=== PATIENT | female | born 1965 | race Caucasian/White ===

== ENCOUNTER 2016-12-19 04:41 | Emergency (ER) | payer BC ==
[~2016-12-19] VITALS: Ht 165.1 cm; Wt 77.7 kg
[2016-12-19 04:45] VITALS: BP 130/85; PULSE 85; RESP 18; TEMP 98; O2SAT 100
[2016-12-19] MEDS ORDERED: SODIUM CHLOR 0.9% 1000 ML INJ 1,000 ML IV ONE (05:15)
[2016-12-19 05:50] VITALS: BP_SYST 100; BP_SYST 103; BP_DIAS 52; BP_DIAS 63; BP_DIAS 65; RESP 18
[2016-12-19 05:55] VITALS: BP 105/60; PULSE 96; RESP 18; O2SAT 96
[2016-12-19 05:57] LABS: BLOOD, URINE LARGE (NEG); GLUCOSE,URINE NEG (NEG); KETONE, URINE NEG (NEG); NITRITE,URINE NEG (NEG); PH, URINE 5.5 (5.0-8.5)
[2016-12-19 05:58] LABS: AUTOMATED NEUTROPHIL # 6.4 TH/MM3 (1.8-7.7); BASOPHIL % 0.4 % (0.0-2.0); EOSINOPHIL # 0.2 TH/MM3 (0-0.4); EOSINOPHIL % 1.9 % (0.0-4.0); HEMATOCRIT 31.9 % (35.0-46.0); HEMO FLAGS DIFF FINAL; LYMPH % 16.4 % (9.0-44.0); LYMPHOCYTE # 1.4 TH/MM3 (1.0-4.8); MEAN CELL VOLUME 84.4 FL (80.0-100.0); MEAN CORPUSCULAR HEMOGLOBIN 27.5 PG (27.0-34.0); MEAN CORPUSCULAR HGB CONC 32.6 % (32.0-36.0); MONO % 4.9 % (0.0-8.0); NEUT % 76.4 % (16.0-70.0); PLATELET COUNT 255 TH/MM3 (150-450); RED BLOOD COUNT 3.78 MIL/MM3 (4.00-5.30); RED CELL DISTRIBUTION WIDTH 14.1 % (11.6-17.2); WHITE BLOOD COUNT 8.4 TH/MM3 (4.0-11.0)
[2016-12-19 06:06] LABS: URINE COLOR YELLOW (YELLW/STRAW)
[2016-12-19 06:07] LABS: COMMENT (UR) CULT NOT INDICATED; CULTURE IF INDICATED CULT NOT INDICATED; POTASSIUM 3.9 MEQ/L (3.5-5.1); SQUAMOUS EPITHELIAL CELL URINE 0-5 /hpf (0-5); WBC, URINE 0-2 /hpf (0-5)
[2016-12-19 06:10] LABS: BICARBONATE 26.6 MEQ/L (21.0-32.0)
--- NOTE | 2016-12-19 06:15 | PD ---
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 Patient was seen by her primary care provider and referred to Dr. Turner who ordered an outpatient ultrasound. Patient reports that her last Pap smear was 3 years ago which was reportedly normal. Patient has family history of uterine/ovarian cancer in her mother who is . Patient has noted increased bleeding today such that she is changing a Maxi tampon every hour. Patient also complains of dizziness and lightheadedness. No near-syncope or syncope. No abdominal pain. Patient does not know the results of her outpatient ultrasound from earlier this week. PFSH Past Medical History Narrative Medical neg pmh/psh; no tobacco; nursing notes reviewed ?: Not Social History Tobacco Use: No Allergies-Medications (Allergen,Severity, Reaction): Coded Allergies: No Known Allergies (Unverified , 12/19/16) Reported Meds & Prescriptions Reported Meds & Active Scripts Active Medroxyprogesterone Acetate 10 Mg Tab 10 Mg PO DAILY Start day 16 Reported Lorazepam 0.5 Mg Tab 0.5 Mg PO BID PRN Propranolol (Propranolol HCl) 20 Mg Tab 20 Mg PO DAILY Levothyroxine (Levothyroxine Sodium) 100 Mcg Tab 100 Mcg PO DAILY Narrative Medication "pills for 10 days" Review of Systems Except as stated in HPI: all other systems reviewed are Neg General / Constitutional: No: Fever, Chills HENT: No: Congestion Cardiovascular: No: Chest Pain or Discomfort, Syncope Respiratory: No: Shortness of Breath Gastrointestinal: No: Nausea, Vomiting, Abdominal Pain Genitourinary: Positive: Pelvic Pain (intermittent cramping) Musculoskeletal: No: Pain Skin: No Rash Neurologic: No: Weakness Psychiatric: No: Anxiety Hematologic/Lymphatic: No: Lymph Node Enlargement Physical Exam Narrative GENERAL: Well-developed well-nourished female in no acute distress no respiratory distress SKIN: Warm and dry. HEAD: Normocephalic. EYES: No scleral icterus. No injection or drainage. Mild conjunctival pallor. NECK: Supple, trachea midline. No JVD or lymphadenopathy. CARDIOVASCULAR: Regular rate and rhythm without murmurs, gallops, or rubs. RESPIRATORY: Breath sounds equal bilaterally. No accessory muscle use. GASTROINTESTINAL: Abdomen soft, non-tender, nondistended. Pelvic exam: Normal external exam no redness induration or lesions; speculum exam fresh blood in the vaginal vault no clots no tissue cervical os is closed; bimanual exam no palpable uterine enlargement or tenderness or mass, no adnexal mass or tenderness. MUSCULOSKELETAL: No cyanosis, or edema. BACK: Nontender without obvious deformity. No CVA tenderness. Data Data Last Documented VS Vital Signs Date Time Temp Pulse Resp B/P Pulse Ox O2 Delivery O2 Flow Rate FiO2 12/19/16 08:34 70 16 102/60 100 Orders Complete Blood Count With Diff (12/19/16 05:09) Basic Metabolic Panel (Bmp) (12/19/16 05:09) Type And Screen (12/19/16 05:09) Urinalysis - C+S If Indicated (12/19/16 05:09) Iv Access Insert/Monitor (12/19/16 05:09) Sodium Chlor 0.9% 1000 Ml Inj (Ns 1000 M (12/19/16 05:15) Orthostatic Vital Signs (12/19/16 05:09) Ed Urine Pregnancytest Poc (12/19/16 06:15) Estrogens Conjugated Inj (Premarin Inj) (12/19/16 06:45) Labs Laboratory Tests Test 12/19/16 05:40 White Blood Count 8.4 TH/MM3 Red Blood Count 3.78 MIL/MM3 Hemoglobin 10.4 GM/DL Hematocrit 31.9 % Mean Corpuscular Volume 84.4 FL Mean Corpuscular Hemoglobin 27.5 PG Mean Corpuscular Hemoglobin 32.6 % Concent Red Cell Distribution Width 14.1 % Platelet Count 255 TH/MM3 Mean Platelet Volume 7.3 FL Neutrophils (%) (Auto) 76.4 % Lymphocytes (%) (Auto) 16.4 % Monocytes (%) (Auto) 4.9 % Eosinophils (%) (Auto) 1.9 % Basophils (%) (Auto) 0.4 % Neutrophils # (Auto) 6.4 TH/MM3 Lymphocytes # (Auto) 1.4 TH/MM3 Monocytes # (Auto) 0.4 TH/MM3 Eosinophils # (Auto) 0.2 TH/MM3 Basophils # (Auto) 0.0 TH/MM3 CBC Comment DIFF FINAL Differential Comment Urine Color YELLOW Urine Turbidity CLEAR Urine pH 5.5 Urine Specific [place] 1.011 Urine Protein NEG mg/dL Urine Glucose (UA) NEG mg/dL Urine Ketones NEG mg/dL Urine Occult Blood LARGE Urine Nitrite NEG Urine Bilirubin NEG Urine Leukocyte Esterase NEG Urine RBC 10-14 /hpf Urine WBC 0-2 /hpf Urine Squamous Epithelial 0-5 /hpf Cells Urine Bacteria NONE /hpf Microscopic Urinalysis Comment CULT NOT INDICATED Sodium Level 143 MEQ/L Potassium Level 3.9 MEQ/L Chloride Level 108 MEQ/L Carbon Dioxide Level 26.6 MEQ/L Anion Gap 8 MEQ/L Blood Urea Nitrogen 13 MG/DL Creatinine 1.10 MG/DL Estimat Glomerular Filtration 52 ML/MIN Rate Random Glucose 74 MG/DL Calcium Level 8.4 MG/DL Blood Type O NEGATIVE Antibody Screen NEGATIVE MDM Medical Decision Making Medical Screen Exam Complete: Yes Emergency Medical Condition: Yes Medical Record Reviewed: Yes Interpretation(s) CBC & BMP Diagram 12/19/16 05:40 Differential Diagnosis Menorrhagia, uterine fibroid, uterine mass, Narrative Course patient with reported saturated maxi tampon and pad upon arrival to the ED in less than 1 hour; after pelvic exam in less than 1 hour saturated maxi tampon but not the sanitary pad @ 5:45 patient with new tampon and same pad--at 6:10 AM tampon and pad are saturated. Hemoglobin is 10.4 and orthostatic vital signs heart rate changed 20 points from supine to standing blood pressure remains stable. !@ 6:23 AM case discussed with Dr Ram -- recommends premarin iv x 1 dose and Rx for progesterone along with patient to see Dr Morfin on Wednesday At 7 AM care signed over to oncoming physician Dr. Alcaraz Physician Communication Physician Communication discussed with Dr Ram Diagnosis Primary Impression: Metrorrhagia Referrals: Impregnator Helper 2 days Patient Instructions: General Instructions Additional Instructions: follow up with your DRIVER LICENSE AGENT Wednesday No work 2 days Return to the emergency department for any concerns or change in condition Increase fluid hydration Med/Other Pt SpecificInfo: Prescription(s) given Scripts Medroxyprogesterone Acetate 10 Mg Tab10 Mg PO DAILY #10 TAB Ref 0 Start day 16 Prov:Helen Kenyon MD 12/19/16 Helen Kenyon MD Dec 19, 2016 06:15
[2016-12-19] MEDS ORDERED: LEVO100T5 PO (06:37)
[2016-12-19] MEDS ORDERED: PROP20TA3 PO (06:37)
[2016-12-19] MEDS ORDERED: LORA-373 PO (06:38)
[2016-12-19] MEDS ORDERED: ESTROGENS CONJUGATED 25 MG/5 ML VIAL IV PUSH ONE (06:45)
[2016-12-19 06:55] VITALS: BP 103/58; PULSE 72; RESP 16; TEMP 97.7; O2SAT 100
[2016-12-19] MEDS ORDERED: MEDR10TA7 PO (07:03)
--- NOTE | 2016-12-19 08:29 | PD ---
Data Data Last Documented VS Vital Signs Date Time Temp Pulse Resp B/P Pulse Ox O2 Delivery O2 Flow Rate FiO2 12/19/16 06:55 97.7 72 16 103/58 100 Room Air Orders Complete Blood Count With Diff (12/19/16 05:09) Basic Metabolic Panel (Bmp) (12/19/16 05:09) Type And Screen (12/19/16 05:09) Urinalysis - C+S If Indicated (12/19/16 05:09) Iv Access Insert/Monitor (12/19/16 05:09) Sodium Chlor 0.9% 1000 Ml Inj (Ns 1000 M (12/19/16 05:15) Orthostatic Vital Signs (12/19/16 05:09) Ed Urine Pregnancytest Poc (12/19/16 06:15) Estrogens Conjugated Inj (Premarin Inj) (12/19/16 06:45) Labs Laboratory Tests Test 12/19/16 05:40 White Blood Count 8.4 TH/MM3 Red Blood Count 3.78 MIL/MM3 Hemoglobin 10.4 GM/DL Hematocrit 31.9 % Mean Corpuscular Volume 84.4 FL Mean Corpuscular Hemoglobin 27.5 PG Mean Corpuscular Hemoglobin 32.6 % Concent Red Cell Distribution Width 14.1 % Platelet Count 255 TH/MM3 Mean Platelet Volume 7.3 FL Neutrophils (%) (Auto) 76.4 % Lymphocytes (%) (Auto) 16.4 % Monocytes (%) (Auto) 4.9 % Eosinophils (%) (Auto) 1.9 % Basophils (%) (Auto) 0.4 % Neutrophils # (Auto) 6.4 TH/MM3 Lymphocytes # (Auto) 1.4 TH/MM3 Monocytes # (Auto) 0.4 TH/MM3 Eosinophils # (Auto) 0.2 TH/MM3 Basophils # (Auto) 0.0 TH/MM3 CBC Comment DIFF FINAL Differential Comment Urine Color YELLOW Urine Turbidity CLEAR Urine pH 5.5 Urine Specific [place] 1.011 Urine Protein NEG mg/dL Urine Glucose (UA) NEG mg/dL Urine Ketones NEG mg/dL Urine Occult Blood LARGE Urine Nitrite NEG Urine Bilirubin NEG Urine Leukocyte Esterase NEG Urine RBC 10-14 /hpf Urine WBC 0-2 /hpf Urine Squamous Epithelial 0-5 /hpf Cells Urine Bacteria NONE /hpf Microscopic Urinalysis Comment CULT NOT INDICATED Sodium Level 143 MEQ/L Potassium Level 3.9 MEQ/L Chloride Level 108 MEQ/L Carbon Dioxide Level 26.6 MEQ/L Anion Gap 8 MEQ/L Blood Urea Nitrogen 13 MG/DL Creatinine 1.10 MG/DL Estimat Glomerular Filtration 52 ML/MIN Rate Random Glucose 74 MG/DL Calcium Level 8.4 MG/DL Blood Type O NEGATIVE Antibody Screen NEGATIVE MDM Supervised Visit with TEODORA: No Narrative Course Recheck patient. Continues to do well. 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 Diagnosis Primary Impression: Metrorrhagia Referrals: Finish Molder 2 days Patient Instructions: General Instructions, Menorrhagia (ED) Departure Forms: Tests/Procedures, Work Release Enter return to work date: Dec 22, 2016 Additional Instruction: follow up with your MANAGER PROVIDER RELATIONS Wednesday No work 2 days Return to the emergency department for any concerns or change in condition Increase fluid hydration Scripts Medroxyprogesterone Acetate 10 Mg Tab10 Mg PO DAILY #10 TAB Ref 0 Start day 16 Prov:Helen Kenyon MD 12/19/16 Dima Martinez MD Dec 19, 2016 08:29
[2016-12-19 08:34] VITALS: BP 102/60
== END 2016-12-19 08:39 | disposition home or self-care (01) ==
LOC: PHED 04:41
DX: N92.1 Excessive and frequent menstruation with irregular cycle (principal); R42 Dizziness and giddiness; R10.2 Pelvic and perineal pain; Z80.41 Family history of malignant neoplasm of ovary
CPT/HCPCS: 80048; 81001; 84703; 85025; 86850; 86900; 86901; 96361; 96374; 99284; J1410; J7030